=== PATIENT | male | born 1995 | race Caucasian/White ===

== ENCOUNTER 2018-01-18 17:02 | Emergency (ER) | payer BC ==
[2018-01-18] MEDS ORDERED: NS 0.9% 1000 ML* 1,000 ML IV ONE (17:58)
[2018-01-18] MEDS ORDERED: LORazepam TAB(*) 1 MG PO ONE (17:59)
[2018-01-18 18:18] LABS: ABS Basophils 0 10^3/ul (0-0.2); ABS Eosinophils 0.1 10^3/ul (0-0.6); ABS Lymphocytes 1.8 10^3/ul (1.0-4.8); ABS Monocytes 0.5 10^3/ul (0-0.8); ABS Neutrophils 7.4 10^3/ul (1.5-7.7); ABS Nucleated RBC 0 10^3/ul; Eosinophil % 0.9 % (0-6); Hematocrit 47 % (42-52); Hemoglobin 16.2 g/dl (14.0-18.0); Lymphocyte % 18.6 % (25-47); Mean Corpuscular HGB Conc 35 g/dl (31-36); Mean Corpuscular Hemoglobin 29 pg (27-31); Mean Corpuscular Volume 84 fL (80-94); Mean Platelet Volume 7.6 um3 (7.4-10.4); Nucleated Red Blood Cells % 0; Platelet Count 252 10^3/ul (150-450); Red Blood Count 5.56 10^6/ul (4.00-5.40); Red Cell Distribution Width 14 % (10.5-15); White Blood Count 9.8 10^3/ul (3.5-10.8)
--- NOTE | 2018-01-18 18:18 | ED ---
Neurological HPI - HPI Summary HPI Summary: A 22 y/o male presents to the ED c/o numbness since 2-3 days ago. He states that he has numbness in his feet, hands, legs, stomach and tip of the penile shaft. He also c/o a mild urinary incontinence, having constant PATE and migraines. He denies back, neck, lumbar spine pain or fever. He is able to ambulate with a steady gait and does not drop things. He has SVT. He used to have just a rapid heartbeat but for the past month he felt uncontrollable heart palpitations he believes could be due to anxiety. The patient quit running, smoking and drinking alcohol and caffeine on 12/02/17 due to his worsening condition. He has no history of trauma. Today he saw his fresh food manager at [facility] and drank Kombucha, which does contain a little EtOH. - History of Current Complaint Chief Complaint: EDNeurologicalDeficit Stated Complaint: RAPID HR Time Seen by Provider: 01/18/18 17:07 Hx Obtained From: Patient Onset/Duration: Gradual Onset, Started weeks ago, Still Present Timing: Constant Onset Severity: Moderate Current Severity: Moderate Neurological Deficit Location: Generalized - numbness in feet, hands, legs, stomach, and tip of the penile shaft Pain Intensity: 1 Character: Numbness/Tingling - Allergy/Home Medications Allergies/Adverse Reactions: Allergies Allergy/AdvReac Type Severity Reaction Status Date / Time No Known Allergies Allergy Verified 01/18/18 17:33 Home Medications: Home Medications Nebivolol HCl [Bystolic] 10 mg PO DAILY 01/18/18 [History Confirmed 01/18/18] PMH/Surg Hx/FS Hx/Imm Hx Previously Healthy: No Endocrine/Hematology History: Denies: Hx Diabetes Cardiovascular History: Reports: Hx Hypertension - Resolved Infectious Disease History: No Infectious Disease History: Denies: Traveled Outside the [place] in Last 30 Days - Family History Known Family History: Negative: Hypertension, Diabetes - Social History Alcohol Use: Weekly Substance Use Type: Reports: None Smoking Status (MU): Never Smoked Tobacco Review of Systems Negative: Fever Negative: incontinence Negative: Myalgia - back, lumbar spine and neck pain Neurological: Other - Positive: migraine Positive: Headache, Paresthesia, Numbness All Other Systems Reviewed And Are Negative: Yes Physical Exam - Summary Physical Exam Summary: VITAL SIGNS: Reviewed. GENERAL: Patient is a well-developed and nourished MALE who is lying comfortable in the stretcher.Patient is not in any acute respiratory distress. HEAD AND FACE: No signs of trauma. No ecchymosis, hematomas or skull depressions. No sinus tenderness. EYES: PERRLA, EOMI x 2, No injected conjunctiva, no nystagmus. No photophobia. EARS: Hearing grossly intact. Ear canals and tympanic membranes are within normal limits. MOUTH: Oropharynx within normal limits. NECK: Supple, trachea is midline, no adenopathy, no JVD, no carotid bruit, no c- spine tenderness, neck with full ROM. No meningeal signs, no Kernig's or brudzinskis signs. CHEST: Symmetric, no tenderness at palpation LUNGS: Clear to auscultation bilaterally. No wheezing or crackles. CVS: Regular rate and rhythm, S1 and S2 present, no murmurs or gallops appreciated. ABDOMEN: Soft, non-tender. No signs of distention. No rebound no guarding, and no masses palpated. Bowel sounds are normal. EXTREMITIES: FROM in all major joints, no edema, no cyanosis or clubbing. NEURO: Alert and oriented x 3. No acute neurological deficits. Speech is normal and follows commands. SKIN: Dry and warm GCS: 15 Triage Information Reviewed: Yes Vital Signs On Initial Exam: Initial Vitals Temp Pulse Resp BP Pulse Ox 98.8 F 66 16 139/75 98 01/18/18 17:16 01/18/18 17:16 01/18/18 17:16 01/18/18 17:16 01/18/18 17:16 Vital Signs Reviewed: Yes Diagnostics - Vital Signs Vital Signs Temp Pulse Resp BP Pulse Ox 01/18/18 17:31 69 12 134/73 98 01/18/18 17:29 64 17 97 01/18/18 17:16 98.8 F 66 16 139/75 98 - Laboratory Result Diagrams: 01/18/18 18:11 01/18/18 18:11 Lab Statement: Any lab studies that have been ordered have been reviewed, and results considered in the medical decision making process. - Radiology CXR Xray Interpretation: No Acute Changes - No acute findings. Pending official radiology report. Radiology Interpretation Completed By: ED Physician - EKG 1700 Cardiac Rate: NL - 66 bpm EKG Rhythm: Sinus Rhythm ST Segment: Normal - no ST elevation EKG Interpretation: normal axis Course/Dx - Course Assessment/Plan: A 22 y/o male presents to the ED c/o numbness since 2-3 days ago. He states that he has numbness in his feet, hands, legs, stomach and tip of the penile shaft. He also c/o a mild uncontrollable bladder, having constant PATE and migraines. He denies back, neck and lumbar spine pain. He is able to ambulate and does not drop things. He has SVT. He used to have just a rapid heartbeat but for the past month he felt uncontrollable heart palpitations he believes could be due to anxiety. The patient quit running, smoking and drinking alcohol and caffeine on 12/02/17 due to his worsening condition. Today he drank Kombucha, which does contain a little EtOH. Patient patient reports and that and he was in a rapid heart rate symmetric as when he has been SVTs. However at arrival the symptoms subside. Right now the patient is with a heart rate at the 60s. Patient also reports that his be having headaches for a month and now he's having a lot of paresthesias in both lower extremities. He has no history of trauma his lifting. The patient doesn't report any urinary or fecal dysfunction. Patient denies any fevers and denies any neck pain or back pain. Because of the head is a decided to do head CT of the brain to rule out any acute pathology. If the head CT is negative the patient will be discharged home with follow-up with the primary care physician. The patient also was given Ativan for anxiety. At this point the patient was awaiting for the head CT result therefore the patient will be signed out to Dr. Beverly at shift change. - Diagnoses Provider Diagnoses: SVT (supraventricular tachycardia) Discharge - Sign-Out/Discharge Documenting (check all that apply): Sign-Out Patient Signing out patient TO: Vaishali Beverly - Discharge Plan Condition: Stable Disposition: HOME Patient Education Materials: Supraventricular Tachycardia (ED) Referrals: [facility] [place] [place] PHYSICIAN REFERRAL [Outside] - 2 Days Additional Instructions: RETURN TO THE EMERGENCY DEPARTMENT FOR CHANGING OR WORSENING SYMPTOMS. FOLLOW UP WITH PCP IN 1-2 DAYS. - Attestation Statements Document Initiated by Scribe: Yes Documenting Scribe: Israel Pritchard Provider For Whom Scribe is Documenting (Include Credential): Ulises Snow MD Scribe Attestation: I, Israel Pritchard, scribed for Ulises Snow MD on 01/19/18 at 1000. Scribe Documentation Reviewed: Yes Provider Attestation: The documentation as recorded by the Israel peterson accurately reflects the service I personally performed and the decisions made by me, Ulises Snow MD
[2018-01-18 18:24] LABS: INR 0.98 (0.77-1.02)
[2018-01-18 18:48] LABS: EGFR Non-African American 96.8 (>60)
--- NOTE | 2018-01-18 19:08 | ED ---
Progress - Progress Note Progress Note: Pt was signed out by Dr. Snow, awaiting CT results. CT Brain is negative. The patient will be diagnosed with SVT and sent home. Follow up with PCP. - Results/Orders Results/Orders: CT Brain: No acute intracranial pathology. ED Physician has reviewed this report Course/Dx - Course Course Of Treatment: The CT Brain was negative. The patient will be sent home with a diagnosis of SVT and should follow up with their PCP. - Diagnoses Provider Diagnoses: SVT (supraventricular tachycardia) Discharge - Sign-Out/Discharge Documenting (check all that apply): Patient Departure - discharge - Discharge Plan Condition: Stable Disposition: HOME Patient Education Materials: Supraventricular Tachycardia (ED) Referrals: [facility] [place] [facility]IAN REFERRAL [Outside] - 2 Days Additional Instructions: RETURN TO THE EMERGENCY DEPARTMENT FOR CHANGING OR WORSENING SYMPTOMS. FOLLOW UP WITH PCP IN 1-2 DAYS. - Attestation Statements Document Initiated by Scribe: Yes Documenting Scribe: Dg Estrella Provider For Whom Scribe is Documenting (Include Credential): Maxim Mirandaibnahum Attestation: Dg Villasenor, scribed for Vaishali Beverly on 01/18/18 at 1922.
[2018-01-18 19:13] LABS: Urine Appearance Clear; Urine Blood Negative (Negative); Urine Color Straw; Urine Ketones Negative (Negative); Urine Protein Negative (Negative); Urine Specific Gravity 1.005 (1.010-1.030); Urine Urobilinogen Negative (Negative)
--- NOTE | 2018-01-18 19:17 | RAD ---
EXAM: CT Head Without Intravenous Contrast CLINICAL HISTORY: 22 years old, male; Pain; Headache; Headache not specified; Additional info: Headaches TECHNIQUE: Axial computed tomography images of the head/brain without intravenous contrast. All CT scans at this facility use at least one of these dose optimization techniques: automated exposure control; mA and/or kV adjustment per patient size (includes targeted exams where dose is matched to clinical indication); or iterative reconstruction. COMPARISON: No relevant prior studies available. FINDINGS: Brain: No intracranial hemorrhage or extra-axial fluid collection. No evidence of mass effect or midline shift. Pittman-white matter differentiation is normal. Ventricles: Unremarkable. No ventriculomegaly. Bones/joints: Unremarkable. No acute fracture. Soft tissues: Unremarkable. Sinuses: Unremarkable as visualized. No acute sinusitis. Mastoid air cells: Unremarkable as visualized. No mastoid effusion. IMPRESSION: No acute intracranial pathology. To contact [facility] with a general question: [facility] - [phone] For direct physician to physician contact: Physician Hotline - [phone] [facility] ([facility] Facility ID #[id number])
[2018-01-18 20:25] VITALS: BP 142/69
--- NOTE | 2018-01-19 05:20 | RAD ---
Indication: Palpitations. Comparison: No relevant prior exams available on the [facility] for comparison. Technique: Upright AP 1816 hours Report: Clear lungs and pleural spaces. Negative for pneumothorax. The heart, pulmonary vasculature, and mediastinal contours are unremarkable. Unremarkable osseous structures and soft tissue contours. IMPRESSION: #. No evidence for acute intrathoracic disease. R0
== END 2018-01-18 20:10 | disposition home or self-care (01) ==
LOC: ED 17:02
DX: I47.1 Supraventricular tachycardia (principal); R20.0 Anesthesia of skin; N32.9 Bladder disorder, unspecified
CPT/HCPCS: 36415; 70450; 71045; 80053; 80307; 80320; 81003; 83605; 84484; 85025; 85610; 93005; 99283; A9270-GY; G0480

== ENCOUNTER 2018-03-28 21:50 | Emergency (ER) | payer BC ==
[2018-03-28] MEDS ORDERED: ALPRAZolam TAB* 0.5 MG PO ONE (22:26)
--- NOTE | 2018-03-28 22:38 | ED ---
HPI Chest Pain - HPI Summary HPI Summary: Pt is a 22 year old M presenting to the ED with a chief complaint of chest pain. Today, he was doing normal things when he felt his heart was beating irregularly and started hurting. He took a nap and got dinner after, the cp continued, so he took a 25 mg metoprolol around 2030. The pt reports dizziness, chest pain, shortness of breath. The pt denies the pain radiating. The pt has a hx of cardiac ablation in February as well as a panic disorder that he takes sertraline for daily and klonopin for PRN. - History of Current Complaint Chief Complaint: EDChestPainROMI Time Seen by Provider: 03/28/18 22:09 Hx Obtained From: Patient Onset/Duration: Started Hours Ago, Still Present Timing: Constant, Lasting Hours Initial Severity: Moderate Current Severity: Mild Pain Intensity: 4 Pain Scale Used: 0-10 Numeric Chest Pain Location: Left Anterior Chest Pain Radiates: No Character: Irregular, Pounding Aggravating Factor(s): Nothing Alleviating Factor(s): Nothing Associated Signs and Symptoms: Positive: Chest Pain, Dizziness, Shortness of Breath - Allergy/Home Medications Allergies/Adverse Reactions: Allergies Allergy/AdvReac Type Severity Reaction Status Date / Time No Known Allergies Allergy Verified 01/18/18 17:33 PMH/Surg Hx/FS Hx/Imm Hx Previously Healthy: Yes Endocrine/Hematology History: Denies: Hx Diabetes Cardiovascular History: Reports: Hx Hypertension - Resolved Respiratory History: Denies: Hx Asthma Infectious Disease History: No Infectious Disease History: Denies: Traveled Outside the [place] in Last 30 Days - Family History Known Family History: Negative: Hypertension, Diabetes - Social History Alcohol Use: Weekly Substance Use Type: Reports: None Smoking Status (MU): Never Smoked Tobacco Review of Systems Negative: Fever Positive: Chest Pain Positive: Shortness Of Breath Neurological: Other - dizziness All Other Systems Reviewed And Are Negative: Yes Physical Exam - Summary Physical Exam Summary: VITAL SIGNS: Reviewed. GENERAL: Patient is a well-developed and nourished male who is lying comfortable in the stretcher. Patient is not in any acute respiratory distress. HEAD AND FACE: No signs of trauma. No ecchymosis, hematomas or skull depressions. No sinus tenderness. EYES: PERRLA, EOMI x 2, No injected conjunctiva, no nystagmus. EARS: Hearing grossly intact. Ear canals and tympanic membranes are within normal limits. MOUTH: Oropharynx within normal limits. NECK: Supple, trachea is midline, no adenopathy, no JVD, no carotid bruit, no c- spine tenderness, neck with full ROM. CHEST: Symmetric, no tenderness at palpation LUNGS: Clear to auscultation bilaterally. No wheezing or crackles. CVS: Regular rate and rhythm, S1 and S2 present, no murmurs or gallops appreciated. ABDOMEN: Soft, non-tender. No signs of distention. No rebound no guarding, and no masses palpated. Bowel sounds are normal. EXTREMITIES: FROM in all major joints, no edema, no cyanosis or clubbing. NEURO: Alert and oriented x 3. No acute neurological deficits. Speech is normal and follows commands. SKIN: Dry and warm Triage Information Reviewed: Yes Vital Signs On Initial Exam: Initial Vitals Temp Pulse Resp BP Pulse Ox 99.3 F 69 16 151/91 98 03/28/18 21:51 03/28/18 21:51 03/28/18 21:51 03/28/18 21:51 03/28/18 21:51 Vital Signs Reviewed: Yes Diagnostics - Vital Signs Vital Signs Temp Pulse Resp BP Pulse Ox 03/28/18 22:32 15 03/28/18 21:51 99.3 F 69 16 151/91 98 - Laboratory Result Diagrams: 03/28/18 22:32 03/28/18 22:32 Lab Statement: Any lab studies that have been ordered have been reviewed, and results considered in the medical decision making process. - EKG 2220 Cardiac Rate: NL - 66bpm EKG Rhythm: Sinus Rhythm ST Segment: Normal Ectopy: None Chest Pain Course/Dx - Course Course Of Treatment: Pt is a 22 y/o M presenting to the ED with chest pain. He was doing normal things when it came on, it progressively got worse, he took a metoprolol at 2030, and it did not go away. The pt has a hx of cardiac ablation and panic disorder. The pt is stable and feeling better as of 2342, and will be sent home with a dx of anxiety and atypical chest pain, with instructions to follow up with his PCP and comsec manager or return to the ED with any new or worsening symptoms. - Diagnoses Provider Diagnoses: Anxiety, Atypical chest pain Discharge - Sign-Out/Discharge Documenting (check all that apply): Patient Departure - home - Discharge Plan Condition: Stable Disposition: HOME Forms: *School Release Referrals: [facility] [place] [facility] REFERR[facility] [Outside] Additional Instructions: PLEASE FOLLOW UP WITH YOUR PRIMARY CARE PROVIDER AND JOB SUPERINTENDENT IN THE NEXT 2- 3 DAYS. PLEASE RETURN TO THE ED WITH ANY NEW OR WORSENING SYMPTOMS. - Billing Disposition and Condition Condition: STABLE Disposition: Home - Attestation Statements Document Initiated by Scribe: Yes Documenting Scribe: Sharee Ford Provider For Whom Shaun is Documenting (Include Credential): Vaishali Beverly MD. Scribe Attestation: Sharee Villasenor, scribed for Vaishali Beverly MD. on 03/29/18 at 0603. Scribe Documentation Reviewed: Yes Provider Attestation: The documentation as recorded by the scribe, Sharee Ford accurately reflects the service I personally performed and the decisions made by Maxim blanca MD. Status of Scribe Document: Viewed
[2018-03-28 22:41] LABS: ABS Basophils 0 10^3/ul (0-0.2); ABS Eosinophils 0.1 10^3/ul (0-0.6); ABS Monocytes 0.5 10^3/ul (0-0.8); ABS Neutrophils 5.1 10^3/ul (1.5-7.7); ABS Nucleated RBC 0 10^3/ul; Eosinophil % 1.5 %; Hematocrit 46 % (42-52); Hemoglobin 15.9 g/dl (14.0-18.0); Lymphocyte % 26.3 %; Mean Corpuscular HGB Conc 34 g/dl (31-36); Mean Corpuscular Hemoglobin 29 pg (27-31); Mean Corpuscular Volume 86 fL (80-94); Mean Platelet Volume 7.4 fL (7.4-10.4); Nucleated Red Blood Cells % 0.1; Platelet Count 277 10^3/ul (150-450); Red Cell Distribution Width 13 % (10.5-15); White Blood Count 7.8 10^3/ul (3.5-10.8)
[2018-03-28 23:03] LABS: EGFR Non-African American 108.3 (>60)
[2018-03-28 23:54] VITALS: BP 140/78
== END 2018-03-28 23:54 | disposition home or self-care (01) ==
LOC: ED 21:50
DX: F41.9 Anxiety disorder, unspecified (principal); R07.89 Other chest pain
CPT/HCPCS: 36415; 80053; 83735; 84443; 84484; 85025; 93005; 99283; A9270-GY